=== PATIENT | female | born 1975 | race Caucasian/White ===

== ENCOUNTER → 2017-10-05 14:20 | Outpatient (CLI) | payer BC, SELFPAY ==
--- NOTE | 2017-10-05 14:30 | US_ITS ---
US breast LT complete COMPARISON: Bilateral digital mammograms 04/06/2017 HISTORY: Possible new palpable lesion 6:00 position mid breast TECHNIQUE: Targeted ultrasound left breast FINDINGS: Moderate diffuse heterogenic echogenicity is seen consistent with the heterogenic fibroglandular density seen on the mammogram 04/06/2017. There is a hypoechoic oval lesion at the 6:00 position near the nipple measuring 0.4 0.5 x 0.3 cm. This appears to have internal echoes and likely is a small complex cyst and/or cyst with internal debris. In addition there is a benign-appearing hypoechoic lesion near the nipple at the 5:00 position measuring 0.5 0.7 x 0.5 cm and this likely is a small cyst. There are couple of dilated ducts adjacent to the structure. Review of the previous mammogram shows, heterogenic fibroglandular densities in the central portion and subareolar region but no definite abnormal density at the 6:00 position. IMPRESSION: Hypoechoic lesion at the 6:00 position near the nipple likely a small fibroadenoma or complex cyst however in view of this lesion and other cystic lesion near the nipple Francisco the patient have a diagnostic left mammogram for additional evaluation.
== END ==
PROVIDERS: Family Provider Internal Medicine; PCP Internal Medicine; Visit Provider Internal Medicine
DX: N63.20 Unspecified lump in the left breast, unspecified quadrant (principal)
CPT/HCPCS: 76641

== ENCOUNTER → 2017-10-23 15:14 | Outpatient (CLI) | payer BC, SELFPAY ==
--- NOTE | 2017-10-23 15:24 | MM_ITS ---
MM Dig mamm DX unilat LT CAD COMPARISON: Digital mammograms 04/06/2017 and ultrasound left breast 10/05/2017 INDICATION: Possible palpable new lesion near the 6:00 position left breast TECHNIQUE: Standard MLO and CC views were obtained along with spot compression MLO and CC views FINDINGS: Diffuse heterogenic fibroglandular densities are noted. There is a possible small density near the 6:00 position best seen on the spot CC view. This appears to correspond in size to the hypoechoic lesion seen to this location on the ultrasound exam and could be either a small complex cyst or fibroadenoma. I do not definite see a density corresponding to the other small cystic-appearing lesion at the 5:00 position. IMPRESSION: Probable small complex cyst versus fibroadenoma. Accounting for the palpable lesion near the 6:00 position and recommend the patient have a six-month short-term interval follow-up left mammogram and possibly ultrasound as well to evaluate for interval stability BI-RADS Category: 3 Benign Finding Short Term Follow-up RECOMMENDED FOLLOW-UP: 6M - 6 MONTH FOLLOW-UP (A letter has been sent to the patient regarding results of the study.)
== END ==
PROVIDERS: Family Provider Internal Medicine; PCP Internal Medicine; Visit Provider Internal Medicine
DX: N64.89 Other specified disorders of breast
CPT/HCPCS: 77065

== ENCOUNTER → 2019-06-07 11:34 | Outpatient (CLI) | payer BC, SELFPAY ==
[2019-06-07 14:29] LABS: Alanine Aminotransferase 21 U/L (12-78); Albumin Level 3.7 gm/dL (3.4-5.0); Albumin/Globulin Ratio 1.2 (1.1-1.8); Alkaline Phosphatase 66 U/L (46-116); Anion Gap 14.9 mEq/L (5-15); Aspartate Amino Transferase 10 U/L (15-37); Bilirubin,Total 0.3 mg/dL (0.2-1.0); Blood Urea Nitrogen 12 mg/dL (7-18); Calcium 8.8 mg/dL (8.5-10.1); Carbon Dioxide 25 mmol/L (21.0-32.0); Chloride 103 mmol/L (98-107); Chol/HDL Ratio 4.5 (1-3.5); Cholesterol 187 mg/dL (140-200); Creatinine,Serum 0.62 mg/dL (0.55-1.02); Estimated Glomerular Filt Rate 104 ml/min (>60); GFR (African American) 126 ML/MIN (>60); Globulin 3.1 gm/dl (1.3-3.2); Glucose 97 mg/dL (74-106); HDL Cholesterol 42 mg/dL (29-89); LDL Cholesterol 121 mg/dL (0-130); Potassium 3.9 mmoL/L (3.5-5.1); Sodium 139 mmol/L (136-145); Thyroid Stimulating Hormone 1.91 uIU/ml (0.358-3.740); Total Protein,Serum 6.8 gm/dL (6.4-8.2); Triglycerides 122 mg/dL (30-200); VLDL Cholesterol 24 mg/dL (0-40)
== END ==
LOC: LAB 11:36 → LAB.DROPOF 11:37
PROVIDERS: Visit Provider Internal Medicine
DX: E03.9 Hypothyroidism, unspecified (principal); E06.3 Autoimmune thyroiditis; E78.5 Hyperlipidemia, unspecified; G43.109 Migraine with aura, not intractable, without status migrainosus
CPT/HCPCS: 36415; 80053; 80061; 84443

== ENCOUNTER → 2019-07-03 16:32 | Outpatient (CLI) | payer BC, SELFPAY ==
--- NOTE | 2019-07-03 16:35 | MM_ITS ---
PROCEDURE: MM DIG SCREENING MAMM BI W/CAD CLINICAL INDICATION: SCREENING The history of breast cancer in the patient's 2 maternal aunts COMPARISON: DMDXUWAR DIG MAMM-DX UNI RT W ADD VIEW from 07/26/2016 DMSB DIG MAMM-SCREEN QUEENIE W/CAD from 04/06/2017 DXLT MM Dig mamm DX unilat LT CAD from 10/23/2017 TECHNIQUE: Standard CC and MLO images were obtained. R2 CAD reviewed. FINDINGS: Prominent diffuse fibroglandular densities are seen throughout both breasts. There are 2 new nodular densities left breast one showing smooth well-defined border other showing slightly irregular borders. Both there in the outer quadrant and likely represent cysts however recommend the patient return for spot compression views and ultrasound for additional evaluation. There are no suspicious microcalcifications. IMPRESSION: New nodular lesions left breast BI-RAD Category: 0 Need Additional Imaging Evaluation FOLLOW-UP: IMM Immediate Follow-up Recommended (A letter has been sent to the patient regarding results of the study.) Dictated by: Dr. Maykel Nogueira MD 07/06/2019 15:[address] Maykel Nogueira MD in [place] 07/06/2019 15:28
== END ==
PROVIDERS: PCP Internal Medicine; Visit Provider Internal Medicine
DX: Z12.31 Encounter for screening mammogram for malignant neoplasm of breast (principal)
CPT/HCPCS: 77067

== ENCOUNTER → 2019-07-29 13:12 | Outpatient (CLI) | payer BC, SELFPAY ==
--- NOTE | 2019-07-29 13:16 | MM_ITS ---
PROCEDURE: MM DIG MAMM DX UNILAT LT CAD CLINICAL INDICATION: ABNORMAL MAMM Follow-up abnormal mammogram and left breast nodules COMPARISON: DMSB DIG MAMM-SCREEN QUEENIE W/CAD from 04/06/2017 DXLT MM Dig mamm DX unilat LT CAD from 10/23/2017 MM DIG SCREENING MAMM BI W/CAD from 07/03/2019 US BREAST LT COMPLETE from 07/29/2019 TECHNIQUE: Problem solving views of the left breast along with left breast ultrasound FINDINGS: Are fairly well-circumscribed 13 mm nodule in the upper outer left breast and 1 in the left breast at 3 o'clock. Left breast ultrasound: O'clock a well by 12 mm. At 2 o'clock there is 4 mm and a mm. 4 o'clock there is a 14 by 12 mm cyst. An additional 4 mm cyst present 4 o'clock. 5 mm cyst at 11 o'clock. Small nodes are present in the axilla. No suspicious nodules evident. IMPRESSION: New left breast nodules correspond to benign-appearing cysts BI-RAD Category: 2 Benign Finding(s) FOLLOW-UP: 1YR 1 Year Follow-up (A letter has been sent to the patient regarding results of the study.) Dictated by: Dez Thomas MD 08/02/2019 11:25 Electronically signed by Dez Thomas MD in [place] 08/02/2019 11:25
== END ==
PROVIDERS: PCP Internal Medicine; Visit Provider Internal Medicine
DX: R92.8 Other abnormal and inconclusive findings on diagnostic imaging of breast (principal)
CPT/HCPCS: 76641; 77065

== ENCOUNTER → 2021-07-22 15:11 | Outpatient (CLI) | payer OTHER, SELFPAY ==
--- NOTE | 2021-07-22 15:14 | MM_ITS ---
PROCEDURE INFORMATION: Exam: MG Bilateral Screening 3D Mammography Exam date and time: 07/22/2021 3:14 PM Age: 46 years old Clinical indication: Encounter for screening mammogram for malignant neoplasm of breast TECHNIQUE: Imaging protocol: Bilateral screening tomosynthesis and 2D mammography including computer-aided detection (CAD) when performed. COMPARISON: 1. MG MM DIG MAMM DX UNILAT LT CAD 07/29/2019 1:47 PM 2. MG MM DIG SCREENING MAMM BI W/CAD 07/03/2019 5:00 PM FINDINGS: MAMMOGRAPHY: Breast composition: The breast tissue is heterogeneously dense, which may obscure small masses. Mass: None. Architectural distortion: None. Calcifications: No suspicious calcifications. Asymmetric density: None. Skin thickening: None. Axillary adenopathy: None. IMPRESSION: No mammographic evidence of malignancy. Annual screening is recommended unless otherwise clinically indicated. ASSESSMENT: BI-RADS Category 1: Negative
== END ==
PROVIDERS: PCP Internal Medicine; Visit Provider Internal Medicine
DX: Z12.31 Encounter for screening mammogram for malignant neoplasm of breast (principal)
CPT/HCPCS: 77063; 77067

== ENCOUNTER 2022-06-06 07:28 | Emergency (ER) | payer OTHER, SELFPAY ==
[2022-06-06] VITALS (8 sets, daily range): BP systolic 124–158; BP diastolic 73–96; PULSE 57–70; RESP 18–20; TEMP 36.7; O2SAT 96–99; BMI 30.2
--- NOTE | 2022-06-06 | ECG_ITS ---
APPROVED REPORT Exam: Resting ECG HR:68 bpm ECG Measurements Heart Rate 68 AXES MS 174 P 9 QRSd 70 QRS 5 QT 384 T 18 QTc 401 Conclusion SINUS RHYTHM WITH SINUS ARRHYTHMIA LOW QRS VOLTAGE IN PRECORDIAL LEADS [QRS DEFLECTION < 1.0 mV IN CHEST LEADS] BORDERLINE ECG UNCONFIRMED REPORT Electronically signed by : Ronald Melo MD 06/06/2022 20:52:29
--- NOTE | 2022-06-06 07:44 | XR_ITS ---
FINAL REPORT CLINICAL HISTORY: CP FINDINGS: Two views of the chest were obtained. The heart size and pulmonary vascularity are within normal limits. The mediastinum is normal. No acute pulmonary abnormality is identified. There is no pneumothorax. The bony thorax is intact. IMPRESSION: No active cardiopulmonary disease. Reviewed, Interpreted and Dictated by Zackary Mohamud III, MD Transcribed by Emi Russo Authenticated and [facility]
[2022-06-06 07:56] LABS: Chloride 99 mmol/L (98-107); Sodium 136 mmol/L (136-145)
[2022-06-06 07:57] LABS: Basophils # 0.1 K/mm3 (0-0.2); Eosinophils # 0.1 K/mm3 (0.0-0.4); Eosinophils % 1.5 % (0.1-12.0); Hematocrit 43.5 % (37.0-47.0); Hemoglobin 14.2 g/dL (12.2-16.2); Lymphocytes # 1.3 K/mm3 (0.7-4.5); Lymphocytes % 14.8 % (10-50); Mean Corpuscular HGB Conc 32.6 g/dL (31.8-35.4); Mean Platelet Volume 8.4 fl (7.4-10.4); Monocytes # 0.5 K/mm3 (0.1-1.0); Monocytes % 5.8 % (1.7-9.3); Neutrophils # 6.6 K/mm3 (1.8-7.8); Neutrophils % 76.9 % (37.0-80.0); Platelet Count 309 K/mm3 (142-424); Potassium 4.4 mmoL/L (3.5-5.1); Red Blood Count 4.57 M/mm3 (4.20-5.40); Red Cell Distribution Width 13.6 % (11.5-17.5); White Blood Count 8.6 K/mm3 (4.8-10.8)
[2022-06-06 07:59] LABS: Anion Gap 12.4 mEq/L (5-15); Blood Urea Nitrogen 12 mg/dl (7-17); Carbon Dioxide 29 mmol/L (22.0-30.0); Creatinine Clearance Estimated 163 mL/min (50-200); Estimated Glomerular Filt Rate 132 ml/min (>60); GFR (African American) 159 ML/MIN (>60)
[2022-06-06 08:00] LABS: Calcium 8.8 mg/dl (8.4-10.2); Glucose 100 mg/dl (74-100)
--- NOTE | 2022-06-06 08:01 | PC.NURSE ---
PT TO XR AT THIS TIME
--- NOTE | 2022-06-06 08:05 | PC.NURSE ---
PT RETURNED FROM XR
[2022-06-06 08:12] LABS: Troponin I < 0.01 ng/ml (0.00-0.034)
--- NOTE | 2022-06-06 08:22 | PC.NURSE ---
DR. TUTTLE AT BEDSIDE FOR EVALUATION
--- NOTE | 2022-06-06 08:29 | HMH.EDGENADL ---
Discharge Plan Disposition Patient Disposition: Home, Self-Care Condition: Good Chief Complaint: Chest Pain Referrals Follow up/Referrals: Good Rai MD [Primary Care Provider] - See instructions Clinical Impressions Clinical Impression: Chest pain Instructions Patient Instructions: DI for Chest Pain Discharge ED Provider: Cody Melton General Adult HPI General Chief complaint: Chest Pain Stated complaint: chest pain Time Seen by Provider: 06/06/22 08:10 Mode of Arrival: Wheelchair Limitations: No Limitations Description of Symptoms (Recalled from ER Triage Doc. by RN): PT WITH CHEST PAIN/PRESSURE THAT BEGAN LAST NIGHT, LEFT FACE TINGLING. SMILE SYMMETRICAL History of Present Illness HPI narrative: Patient is a 46-year-old female with no pertinent past medical history who comes in with a complaint of chest pain. She states that she was lying in bed last time when she got acute onset of substernal chest pain. She describes it as a pressure sensation. She says that she got concerned today because she started to get some numbness into her left shoulder and her left jaw. She denies any nausea or diaphoresis. Denies any shortness of breath. She says this never happened in the past. She does have some family history of coronary artery disease but none personally. The substernal pain does not radiate. She does state that she is little bit anxious about and is wondering if that is contributing to her symptoms. Related Data Allergies Allergy/AdvReac Type Severity Reaction Status Date / Time clarithromycin Allergy Intermediate I-RASH Verified 06/06/22 08:29 [CLARITHROMYCIN] Sulfa (Sulfonamide Allergy Intermediate I-HIVES Verified 06/06/22 08:29 Antibiotics) [SULFA (SULFONAMIDE ANTIBIOTICS)] [facility] Surgical History (Updated 06/06/22 @ 07:49 by Corinna Unger RN) H/O section H/O: hysterectomy History of cholecystectomy Family History (Updated 06/06/22 @ 07:49 by Corinna Unger RN) Other No significant family history Social History (Updated 06/06/22 @ 07:49 by Corinna Unger RN) Smoking Status: Never smoker alcohol intake: never current occupational status: employed Travel in the last 8 weeks: None ROS Obtained: Yes All systems reviewed & no additional complaints except as documented A 14 point review of system was obtained and otherwise negative except per HPI Physical Exam General General appearance: alert and in no apparent distress Head Head exam: atraumatic, normocephalic and normal inspection Eye Eye exam: Present normal appearance, PERRL and EOMI ENT ENT exam: Present normal exam, normal oropharynx, mucous membranes moist, TM's normal bilaterally and normal external ear exam Neck Neck exam: Present normal inspection, full ROM and trachea midline; Absent meningismus or lymphadenopathy Chest Chest inspection: Present normal inspection and symmetric chest wall rise; Absent tenderness Respiratory Respiratory exam: Present normal lung sounds bilaterally; Absent respiratory distress Cardiovascular Cardiovascular exam: Present regular rate and normal rhythm; Absent JVD Abdominal Exam Abdominal exam: Present soft and normal bowel sounds; Absent distention, tenderness or guarding Extremities Exam Extremities exam: Present normal inspection, full ROM and normal capillary refill; Absent calf tenderness Back Exam Back exam: Present normal inspection; Absent tenderness Neurological Exam Neurological exam: Present alert and oriented X3 Psychiatric Psychiatric exam: Present normal affect and normal mood Skin Skin exam: Present warm, dry, intact and normal color Lymphatic Lymphatic Findings: no adenopathy Medical Decision Making Medical Records Medical records reviewed: Yes I reviewed the patient's medical records. Fadi Inquiry Pt receiving controlled substance: No Vital Signs: 06/06/22 07:28 06/06/22 07:46 06/06/22 08:01 Gaetano
--- NOTE | 2022-06-06 09:32 | PC.NURSE ---
ROUNDED ON PT AT THIS TIME. NO NEEDS VOICED. CALL LIGHT WITHIN REACH
--- NOTE | 2022-06-06 09:41 | PC.NURSE ---
PT REPORTS LEFT THROAT PAIN AND DROOLING FROM LEFT SIDE OF MOUTH, MD MADE AWARE
--- NOTE | 2022-06-06 09:46 | PC.NURSE ---
DR. TUTTLE AT BEDSIDE
--- NOTE | 2022-06-06 09:49 | CT_ITS ---
FINAL REPORT CLINICAL HISTORY: concern for cva COMPARISON: 07/26/2017 FINDINGS: Axial images of the head were obtained without contrast. Coronal reformatted images were also obtained.This study was performed with techniques to keep radiation doses as low as reasonably achievable (ALARA). Individualized dose reduction techniques using automated exposure control or adjustment of mA and/or kV according to the patient''s size were employed. There is no evidence of intracranial hemorrhage or mass. The ventricular size is within normal limits. There is no evidence of shift of the midline structures. No abnormal extra axial fluid collection is identified. No skull abnormality is seen on the bone window images. IMPRESSION: No acute intracranial abnormality. Reviewed, Interpreted and Dictated by Zackary Mohamud III, MD Transcribed by Mariela Ragsdale Authenticated and . [facility]
--- NOTE | 2022-06-06 10:10 | PC.NURSE ---
PT TO CT AT THIS TIME
--- NOTE | 2022-06-06 10:23 | PC.NURSE ---
PT RETURNED FROM CT
[2022-06-06 11:35] LABS: Troponin I < 0.01 ng/ml (0.00-0.034)
--- NOTE | 2022-06-06 12:47 | PC.NURSE ---
ROUNDED ON PT AT THIS TIME, UPDATED ON POC. NO NEEDS AT THIS TIME. FAMILY AT BEDSIDE
--- NOTE | 2022-06-06 12:52 | PC.NURSE ---
DR. TUTTLE AT BEDSIDE TO DISCUSS DISCHARGE WITH PT AND FAMILY
== END 2022-06-06 13:00 | disposition home or self-care (01) ==
PROVIDERS: Emergency Provider Student in an Organized Health Care Education/Training Program; PCP Internal Medicine
DX: R07.2 Precordial pain (principal); R20.2 Paresthesia of skin; Z88.2 Allergy status to sulfonamides; Z88.8 Allergy status to other drugs, medicaments and biological substances; Z82.49 Family history of ischemic heart disease and other diseases of the circulatory system
CPT/HCPCS: 70450; 71046; 80048; 84484; 85025; 93005; 99285

== ENCOUNTER → 2022-06-12 12:47 | Outpatient (CLI) | payer OTHER, SELFPAY ==
--- NOTE | 2022-06-12 | CA_ITS ---
FINAL REPORT TECHNIQUE: Color Doppler, duplex Doppler and shetty scale sonography of the bilateral neck vasculature was performed. Velocities were measured in the carotid arteries. Stenosis evaluation based on velocity criteria. CLINICAL HISTORY: .episode of CP with lt arm numbness and elevated BP. Family hx- QUYEN FINDINGS: The peak systolic velocity of the right common carotid artery is 81 cm/sec and internal carotid artery 120 cm/sec. The diastolic velocity in the internal carotid artery is 42 cm/sec. The ICA/CCA ratio is 1.6. Visually, no plaque is seen. These findings are consistent with less than 50% stenosis. The external carotid artery is patent. The right vertebral artery is patent with antegrade flow. The peak systolic velocity of the left common carotid artery is 92 cm/sec and internal carotid artery 95 cm/sec. The diastolic velocity in the internal carotid artery is 34 cm/sec. The ICA/CCA ratio is 1.1. Visually, no plaque is seen. These findings are consistent with less than 50% stenosis. The external carotid artery is patent. The left vertebral artery is patent with antegrade flow. IMPRESSION: No evidence of significant carotid stenosis. Bilateral patent vertebral arteries. If indicated, CTA or MRA could further evaluate. Reviewed, Interpreted and Dictated by Zackary Mohamud III, MD Transcribed by Laure Greco Authenticated and [facility]
== END ==
PROVIDERS: PCP Internal Medicine; Visit Provider Internal Medicine
DX: R07.9 Chest pain, unspecified (principal); I10 Essential (primary) hypertension
CPT/HCPCS: 93880

== ENCOUNTER → 2022-06-23 11:30 | Outpatient (CLI) | payer OTHER, SELFPAY ==
[2022-06-23 12:02] LABS: Anion Gap 11.1 mEq/L (5-15); Blood Urea Nitrogen 12 mg/dl (7-17); Calcium 9.2 mg/dl (8.4-10.2); Carbon Dioxide 30 mmol/L (22.0-30.0); Chloride 97 mmol/L (98-107); Estimated Glomerular Filt Rate 132 ml/min (>60); GFR (African American) 159 ML/MIN (>60); Glucose 92 mg/dl (74-100); Potassium 4.1 mmoL/L (3.5-5.1); Sodium 134 mmol/L (136-145)
[2022-06-23 12:11] LABS: NT Pro Brain Natriuretic Pep. 16.4 pg/mL (0-125)
== END ==
PROVIDERS: PCP Internal Medicine; Visit Provider Internal Medicine Cardiovascular Disease
DX: R06.00 Dyspnea, unspecified (principal); R07.9 Chest pain, unspecified; R06.83 Snoring; R40.0 Somnolence; R60.0 Localized edema; R63.5 Abnormal weight gain
CPT/HCPCS: 36415; 80048; 83880

== ENCOUNTER → 2022-06-26 14:51 | Outpatient (CLI) | payer OTHER, SELFPAY | PROVIDERS: PCP Internal Medicine; Visit Provider Internal Medicine Cardiovascular Disease | DX: R06.00 Dyspnea, unspecified (principal); R07.9 Chest pain, unspecified; G47.33 Obstructive sleep apnea (adult) (pediatric); R06.83 Snoring; R40.0 Somnolence; R60.0 Localized edema | CPT/HCPCS: 95806 ==

== ENCOUNTER → 2022-07-03 06:49 | Outpatient (CLI) | payer OTHER, SELFPAY ==
--- NOTE | 2022-07-03 06:52 | CT_ITS ---
FINAL REPORT CLINICAL HISTORY: . chest pain, screening FINDINGS: CT CORONARY CALCIUM SCORE W/O TECHNIQUE: Thin-section axial images were obtained through the heart and coronary arteries per CT coronary calcium score protocol. This study was performed with techniques to keep radiation doses as low as reasonably achievable (ALARA). Individualized dose reduction techniques using automated exposure control or adjustment of mA and/or kV according to the patient's size were employed. FINDINGS: On the axial images, there is calcification within the left descending and circumflex arteries. This gives a coronary artery calcium score of 218 based on the Agatston scale. This coronary artery calcium score places the patient within the 98th percentile based on age and gender. The heart size is normal. There is no pleural or pericardial effusion. Limited evaluation of the lungs reveal no suspicious nodule. IMPRESSION: Coronary artery and calcium score of 218, 98 percentile.. Reviewed, Interpreted and Dictated by Garrett Wilkinson MD Transcribed by Nakita Lara Authenticated and [facility]
== END ==
PROVIDERS: PCP Internal Medicine; Visit Provider Internal Medicine Cardiovascular Disease
DX: R06.00 Dyspnea, unspecified (principal); R07.9 Chest pain, unspecified; R60.0 Localized edema
CPT/HCPCS: 75571

== ENCOUNTER → 2022-07-03 06:54 | Outpatient (CLI) | payer OTHER, SELFPAY ==
--- NOTE | 2022-07-03 06:54 | CA_ITS ---
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 RCS, RVS Ht: 5 ft 0 in Wt: 183lbs BSA: 1.80 BP: 142/79 mmHg Indications: Chest Pressure, SOA, Edema Echo Enhancing Agent Comments: Limited acoustic windows with lung impedence 2D Dimensions IVSd 0.95 cm LVEF (Visual) 69.40 % PWd 0.72 cm LA Volume 30.20 mL LVDd 3.39 cm LA Volume Index 16.40 mL/m2 (M/F) 16-34 LVDs 2.10 cm Aortic Root 2.89 cm Left Atrium 2.43 cm LVOT 1.86 cm (M/F) 1.5-2.5 M-Mode Dimensions RVDd 3.49 cm (0.9-2.6) LA Diam 3.01 cm (1.9-4.0) LVDd 3.59 cm (3.5-5.7) Ao Diam 2.77 cm (2.0-3.7) LVDs 2.42 cm (3.5-5.7) IVSd 0.81 cm (0.6-1.1) PWd 0.84 cm (0.6-1.1) EF (Teich) 61.90% EPSs 0.71 cm FS 32.60% EDV (Teich) 54.10 mL TAPSE 1.65 (<1.7) ESV (Teich) 20.60 mL LV Diastology E Decel Time 190.00 (160-240 msec) E/A Ratio 1.27 MED E' 5.90 (< 7 cm/sec) MED A' 8.30 cm/s E'/MED E' Ratio 11.19 (>14) LAT E' 8.50 (<10 cm/sec) LAT A' 9.10 cm/s E/LAT E' Ratio 7.76 (>14) Aortic Valve LVOT Max 74.00 (70-110 cm/s) LVOT VTI 17.68 cm AoV Peak Bayron. 90.00 (50-130 cm/s) AO Peak GR. 3.20 mmHg AO Mean GR. 1.60 (<5 mmHg) AO VTI 17.95 (18-25 cm) ESTELLA (VTI) 2.68 (2.5-4.5 cm2) Mitral Valve MV A Velocity 52.00 (40-130 cm/s) E/A Ratio 1.27 MV Decel. Time 190.00 (160-240 ms) MV PHT 57.00 ms Pulmonary Valve PV Peak Velocity 88.00 (50-150 cm/s) SC End VMAX 122.00 cm/s Tricuspid Valve TR P. Velocity 224.00 cm/s RAP Estimate 10.00 mmHg RVSP 30.10 mmHg Left Ventricle Left atrium is normal size, left ventricle is normal size, estimated ejection fraction 55% with no regional wall motion abnormality. Diastolic parameters are inconclusive. Right Ventricle Right atrium and right ventricle are mildly enlarged with normal contractility. Aortic Valve Aortic valve is grossly normal, there is no aortic stenosis or aortic insufficiency. Mitral Valve Mitral valve is grossly normal, there is mild mitral regurgitation Tricuspid Valve Tricuspid valve grossly normal, there is mild tricuspid regurgitation, calculated right ventricular systolic pressure 30 mmHg. Pulmonic Valve Pulmonic valve is poorly visualized. Great Vessels Aortic root is normal size. Inferior vena cava is normal 7 normal inspiratory collapse. Pericardium No significant pericardial effusion noted. Conclusion 1. Normal left ventricular size preserved left ventricular systolic function, estimated ejection fraction 55% with no regional wall motion abnormality, diastolic parameters are inconclusive in the study. 2. Mildly enlarged right ventricle with normal contractility. 3. Mild mitral and tricuspid regurgitation, calculated right ventricular systolic pressure 30 mmHg. 4. No significant pericardial effusion noted. 5. Inferior vena cava is normal size with normal inspiratory collapse. Electronically signed by : Eber Santos MD 07/18/2022 05:44:32
--- NOTE | 2022-07-03 08:47 | HMH.ITSHM ---
Current Home Medications as stated by this patient Yessi Fraser or assisted sales representative. []PROPRANOLOL LEVOTHYROXINE NURTEC SPIRONOLACTONE FAMOTIDINE OMEPRAZOLE ASA
--- NOTE | 2022-07-03 08:59 | ECG_ITS ---
APPROVED REPORT Exam: Resting ECG HR:85 bpm ECG Measurements Heart Rate 85 AXES IN 187 P 25 QRSd 71 QRS 6 QT 374 T 7 QTc 416 Conclusion SINUS RHYTHM LOW QRS VOLTAGE IN PRECORDIAL LEADS [QRS DEFLECTION < 1.0 mV IN CHEST LEADS] ABNORMAL ECG UNCONFIRMED REPORT Electronically signed by : Ronald Melo MD 07/03/2022 21:10:45
== END ==
PROVIDERS: PCP Internal Medicine; Visit Provider Internal Medicine Cardiovascular Disease
DX: R06.00 Dyspnea, unspecified (principal); R07.9 Chest pain, unspecified; R06.83 Snoring
CPT/HCPCS: 78452; 93005; 93017; 93306; A9502

== ENCOUNTER → 2023-06-15 06:10 | Outpatient (CLI) | payer OTHER, SELFPAY ==
[2023-06-15 06:35] LABS: Basophils % 0.6 % (0.1-2.0); Eosinophils # 0.1 K/mm3 (0.0-0.4); Hematocrit 39.9 % (37.0-47.0); Hemoglobin 13.6 g/dL (12.2-16.2); Lymphocytes # 1.2 K/mm3 (0.7-4.5); Lymphocytes % 18.5 % (10-50); Mean Corpuscular HGB Conc 34.1 g/dL (31.8-35.4); Mean Corpuscular Hemoglobin 32.3 pg (27.0-31.2); Mean Corpuscular Volume 94.7 fl (81-99); Mean Platelet Volume 8.3 fl (7.4-10.4); Monocytes # 0.3 K/mm3 (0.1-1.0); Monocytes % 5.2 % (1.7-9.3); Neutrophils # 4.8 K/mm3 (1.8-7.8); Neutrophils % 73.7 % (37.0-80.0); Platelet Count 250 K/mm3 (142-424); Red Blood Count 4.21 M/mm3 (4.20-5.40); Red Cell Distribution Width 13.7 % (11.5-17.5); White Blood Count 6.5 K/mm3 (4.8-10.8)
[2023-06-15 07:18] LABS: Chloride 103 mmol/L (98-107)
[2023-06-15 07:19] LABS: Potassium 4.4 mmoL/L (3.5-5.1); Sodium 137 mmol/L (136-145)
[2023-06-15 07:21] LABS: Blood Urea Nitrogen 15 mg/dl (7-17); Estimated Glomerular Filt Rate 106 ml/min (>60); GFR (African American) 129 ML/MIN (>60)
[2023-06-15 07:22] LABS: Alanine Aminotransferase 34 U/L (12-78); Albumin Level 4.2 g/dl (3.5-5.0); Albumin/Globulin Ratio 1.5 (1.1-1.8); Alkaline Phosphatase 64 U/L (38-126); Anion Gap 10.4 mEq/L (5-15); Aspartate Amino Transferase 37 U/L (14-36); Bilirubin,Total 0.5 mg/dl (0.2-1.3); Calcium 8.8 mg/dl (8.4-10.2); Carbon Dioxide 28 mmol/L (22.0-30.0); Chol/HDL Ratio 3.4 (1-3.5); Cholesterol 128 mg/dl (140-200); Globulin 2.8 g/dL (1.3-3.2); Glucose 124 mg/dl (74-100); HDL Cholesterol 38 mg/dl (40-60); Triglycerides 205 mg/dl (30-150); VLDL Cholesterol 41 mg/dL (0-40)
[2023-06-15 07:33] LABS: Direct LDL Cholesterol 70.94 mg/dL (100-129)
[2023-06-15 07:49] LABS: Hemoglobin A1C 5.8 % (4.0-6.0)
[2023-06-15 07:52] LABS: Thyroid Stimulating Hormone 2.36 uIU/mL (0.465-4.68)
== END ==
PROVIDERS: PCP Internal Medicine; Visit Provider Internal Medicine
DX: E03.9 Hypothyroidism, unspecified (principal); E78.5 Hyperlipidemia, unspecified; R60.9 Edema, unspecified; G47.33 Obstructive sleep apnea (adult) (pediatric)
CPT/HCPCS: 80053; 80061; 83036; 84443; 85025

== ENCOUNTER 2023-11-02 07:34 | Outpatient (CLI) | payer OTHER, SELFPAY ==
[2023-11-02 07:32] LABS: Alanine Aminotransferase 41 U/L (12-78); Albumin Level 4.3 g/dl (3.5-5.0); Alkaline Phosphatase 82 U/L (38-126); Anion Gap 10.1 mEq/L (5-15); Aspartate Amino Transferase 33 U/L (14-36); Bilirubin,Direct 0.1 mg/dl (0.0-0.4); Bilirubin,Indirect 0.5 mg/dL (0.0-0.9); Bilirubin,Total 0.6 mg/dl (0.2-1.3); Bilirubin,Unconjugated 0.4 mg/dL (0.0-1.1); Blood Urea Nitrogen 9 mg/dl (7-17); Calcium 8.7 mg/dl (8.4-10.2); Carbon Dioxide 28 mmol/L (22.0-30.0); Chloride 105 mmol/L (98-107); Chol/HDL Ratio 3.7 (1-3.5); Cholesterol 130 mg/dl (140-200); Estimated Glomerular Filt Rate 106 ml/min (>60); GFR (African American) 128 ML/MIN (>60); Glucose 120 mg/dl (74-100); HDL Cholesterol 35 mg/dl (40-60); Magnesium 1.9 mg/dl (1.6-2.3); Potassium 4.1 mmoL/L (3.5-5.1); Sodium 139 mmol/L (136-145); Triglycerides 137 mg/dl (30-150); VLDL Cholesterol 27 mg/dL (0-40)
[2023-11-02 07:42] LABS: Basophils # 0.1 K/mm3 (0-0.2); Basophils % 1.1 % (0.1-2.0); Direct LDL Cholesterol 66.68 mg/dL (100-129); Eosinophils # 0.1 K/mm3 (0.0-0.4); Eosinophils % 1.2 % (0.1-12.0); Hematocrit 43.9 % (37.0-47.0); Lymphocytes # 1.1 K/mm3 (0.7-4.5); Lymphocytes % 16.2 % (10-50); Mean Corpuscular HGB Conc 31.8 g/dL (31.8-35.4); Mean Corpuscular Hemoglobin 31.2 pg (27.0-31.2); Mean Corpuscular Volume 98.1 fl (81-99); Mean Platelet Volume 8.3 fl (7.4-10.4); Monocytes # 0.4 K/mm3 (0.1-1.0); Monocytes % 5.6 % (1.7-9.3); Neutrophils # 5.1 K/mm3 (1.8-7.8); Neutrophils % 75.8 % (37.0-80.0); Platelet Count 285 K/mm3 (142-424); Red Blood Count 4.47 M/mm3 (4.20-5.40); Red Cell Distribution Width 14.2 % (11.5-17.5); White Blood Count 6.7 K/mm3 (4.8-10.8)
[2023-11-02 08:01] LABS: Thyroid Stimulating Hormone 1.84 uIU/mL (0.465-4.68)
[2023-11-02 08:28] LABS: Free T4 (Free Thyroxine) 1.05 ng/dl (0.78-2.19)
== END 2023-11-02 23:59 ==
LOC: LAB 07:34
PROVIDERS: PCP Internal Medicine; Visit Provider Internal Medicine
DX: I25.10 Atherosclerotic heart disease of native coronary artery without angina pectoris (principal); I25.84 Coronary atherosclerosis due to calcified coronary lesion; R93.1 Abnormal findings on diagnostic imaging of heart and coronary circulation; R06.09 Other forms of dyspnea; G47.33 Obstructive sleep apnea (adult) (pediatric); R63.5 Abnormal weight gain; R60.0 Localized edema; E78.5 Hyperlipidemia, unspecified; Z13.1 Encounter for screening for diabetes mellitus; Z68.38 Body mass index [BMI] 38.0-38.9, adult
CPT/HCPCS: 36415; 80048; 80061; 80076; 83036; 83735; 84439; 84443; 85025

== ENCOUNTER 2023-11-13 12:50 | Outpatient (CLI) | payer OTHER, SELFPAY ==
--- NOTE | 2023-11-13 12:51 | CA_ITS ---
APPROVED REPORT EXAM: Comprehensive 2D, Doppler, and color-flow Echocardiogram Sales Operations Lead: Leslie Barton CRT Ht: 5 ft 0 in Wt: 195lbs BSA: 1.85 BP: 110/54 mmHg Indications: Chest Pain, Shortness of Breath, Peripheral Edema TDE limited windowa 2D Dimensions LA Volume 37.90 mL LA Volume Index 20.10 mL/m2 (M/F) 16-34 M-Mode Dimensions RVDd 2.86 cm (0.9-2.6) LA Diam 3.17 cm (1.9-4.0) LVDd 4.00 cm (3.5-5.7) LVDs 2.46 cm (3.5-5.7) IVSd 1.14 cm (0.6-1.1) PWd 0.86 cm (0.6-1.1) EF (Teich) 69.40% FS 38.50% EDV (Teich) 70.00 mL TAPSE 1.93 (<1.7) ESV (Teich) 21.40 mL LV Diastology E Decel Time 197 (160-240 msec) E/A Ratio 1.14 MED A' 11.00 cm/s LAT A' 11.60 cm/s Aortic Valve AO Peak GR. 5.30 mmHg Mitral Valve MV A Velocity 76.0 (40-130 cm/s) E/A Ratio 1.14 Tricuspid Valve TR P. Velocity 166.00 cm/s Left Ventricle The left ventricle is normal size. The left ventricular systolic function is normal. The left ventricular ejection fraction is within the normal range. There is increased LV wall thickness. There is normal LV segmental wall motion. The left ventricular diastolic function is normal. LVEF is 55%. Right Ventricle Right ventricle is mild to moderately dilated. Right ventricle is mildly hypokinetic. Atria The left atrium size is normal. The right atrium size is normal. The interatrial septum is not well-visualized. Aortic Valve The aortic valve opens well. There is no aortic valvular stenosis. No aortic regurgitation is present. Mitral Valve The mitral valve is normal in structure. No evidence of mitral valve stenosis. There is no mitral valve regurgitation noted. Tricuspid Valve The tricuspid valve leaflets are not well-visualized. Trace tricuspid regurgitation. There is insufficient TR jet to estimate RVSP. Pulmonic Valve The pulmonic valve leaflets are not well-visualized. Great Vessels The aortic root is not well-visualized. The IVC is not well-visualized. Pericardium There is no pericardial effusion. Other Information Study Quality: Technically Difficult Conclusion Technically difficult study due to poor acoustic windows. Grossly, normal LV systolic function. Mild to moderate RV dilation with mild reduction in RV function. No significant valvular stenosis or regurgitation in the visualized valves. Electronically signed by : Radhika Bailey MD 11/15/2023 12:05:14
== END 2023-11-13 23:59 ==
LOC: RT 12:51
PROVIDERS: PCP Internal Medicine; Visit Provider Internal Medicine
DX: R06.09 Other forms of dyspnea (principal); R60.0 Localized edema; I25.10 Atherosclerotic heart disease of native coronary artery without angina pectoris; E78.5 Hyperlipidemia, unspecified; R93.1 Abnormal findings on diagnostic imaging of heart and coronary circulation; I25.84 Coronary atherosclerosis due to calcified coronary lesion; G47.33 Obstructive sleep apnea (adult) (pediatric); R63.5 Abnormal weight gain; Z68.38 Body mass index [BMI] 38.0-38.9, adult
CPT/HCPCS: 93306

== ENCOUNTER 2024-10-13 09:02 | Outpatient (CLI) | payer BC, SELFPAY ==
[2024-10-13 09:48] LABS: Eosinophils # 0.1 K/mm3 (0.0-0.4); Mean Corpuscular Hemoglobin 30.6 pg (27.0-31.2); Monocytes # 0.4 K/mm3 (0.1-1.0); Neutrophils # 3.8 K/mm3 (1.8-7.8); Platelet Count 273 K/mm3 (142-424); White Blood Count 5.3 K/mm3 (4.8-10.8)
[2024-10-13 09:52] LABS: Basophils % 0.6 % (0.1-2.0); Eosinophils % 1.7 % (0.1-12.0); Hematocrit 42.4 % (37.0-47.0); Lymphocytes % 19.5 % (10-50); Mean Corpuscular Volume 92.6 fl (81-99); Monocytes % 7.1 % (1.7-9.3); Neutrophils % 70.5 % (37.0-80.0); Red Blood Count 4.58 M/mm3 (4.20-5.40); Red Cell Distribution Width 13.2 % (11.5-17.5)
[2024-10-13 10:10] LABS: Albumin Level 4.5 g/dl (3.5-5.0); Chloride 99 mmol/L (98-107)
[2024-10-13 10:11] LABS: Potassium 4.1 mmoL/L (3.5-5.1); Sodium 136 mmol/L (136-145)
[2024-10-13 10:13] LABS: Alanine Aminotransferase 45 U/L (12-78); Anion Gap 12.1 mEq/L (5-15); Aspartate Amino Transferase 33 U/L (14-36); Bilirubin,Unconjugated 0.6 mg/dL (0.0-1.1); Blood Urea Nitrogen 8 mg/dl (7-17); Carbon Dioxide 29 mmol/L (22.0-30.0); Estimated Glomerular Filt Rate 88 ml/min (>60); GFR (African American) 107 ML/MIN (>60)
[2024-10-13 10:14] LABS: Alkaline Phosphatase 74 U/L (38-126); Bilirubin,Direct 0.2 mg/dl (0.0-0.4); Bilirubin,Indirect 0.6 mg/dL (0.0-0.9); Bilirubin,Total 0.8 mg/dl (0.2-1.3); Calcium 9.1 mg/dl (8.4-10.2); Chol/HDL Ratio 2.3 (1-3.5); Cholesterol 105 mg/dl (140-200); Glucose 92 mg/dl (74-100); HDL Cholesterol 45 mg/dl (40-60); Magnesium 1.7 mg/dl (1.6-2.3); Triglycerides 111 mg/dl (30-150); VLDL Cholesterol 22 mg/dL (0-40)
[2024-10-13 10:25] LABS: Direct LDL Cholesterol 43.32 mg/dL (100-129)
[2024-10-13 10:43] LABS: Thyroid Stimulating Hormone 1.16 uIU/mL (0.465-4.68)
[2024-10-13 10:48] LABS: Free T4 (Free Thyroxine) 1.03 ng/dl (0.78-2.19)
== END 2024-10-13 23:59 | disposition home or self-care (01) ==
LOC: LAB 09:04
PROVIDERS: PCP Internal Medicine; Visit Provider Physician Assistant
DX: Z13.1 Encounter for screening for diabetes mellitus (principal); I25.118 Atherosclerotic heart disease of native coronary artery with other forms of angina pectoris; E78.49 Other hyperlipidemia; R93.1 Abnormal findings on diagnostic imaging of heart and coronary circulation; I25.10 Atherosclerotic heart disease of native coronary artery without angina pectoris; G47.33 Obstructive sleep apnea (adult) (pediatric); E66.9 Obesity, unspecified; Z68.30 Body mass index [BMI] 30.0-30.9, adult
CPT/HCPCS: 36415; 80048; 80061; 80076; 83735; 84439; 84443; 85025

== ENCOUNTER 2025-01-19 08:11 | Outpatient (CLI) | payer BC, SELFPAY ==
--- NOTE | 2025-01-19 08:30 | MM_ITS ---
PROCEDURE INFORMATION: Exam: MG Bilateral Screening 3D Mammography Exam date and time: 01/19/2025 8:36 AM Age: 49 years old Clinical indication: Screening examination TECHNIQUE: Imaging protocol: Bilateral Screening tomosynthesis and 2D mammography including computer-aided detection (CAD) when performed. COMPARISON: 1. MG MM DIG SCREENING MAMM BI W/CAD 07/22/2021 3:22 PM 2. MG MM DIG MAMM DX UNILAT LT CAD 07/29/2019 1:47 PM FINDINGS: MAMMOGRAPHY: Breast composition: There are scattered areas of fibroglandular density. Mass: None. Architectural distortion: None. Calcifications: No suspicious calcifications. Asymmetric density: None. Skin thickening: None. Axillary adenopathy: None. IMPRESSION: No mammographic evidence of malignancy. Annual screening is recommended unless otherwise clinically indicated. ASSESSMENT: BI-RADS 1, Negative.
== END 2025-01-19 23:59 | disposition home or self-care (01) ==
LOC: RAD 08:12
PROVIDERS: PCP Internal Medicine; Visit Provider Internal Medicine
DX: Z12.31 Encounter for screening mammogram for malignant neoplasm of breast (principal); R92.323 Mammographic fibroglandular density, bilateral breasts
CPT/HCPCS: 77063; 77067

== ENCOUNTER 2025-04-15 09:25 | Outpatient (CLI) | payer BC, SELFPAY ==
--- OUTSIDE RECORDS SUMMARY | 2025-04-15 09:32 | XMS_ITS | Clinical Summary ---
Author Organization [facility] Address [address] [place] [address] Care Team Providers Care Barratte Operator Name Role Phone Unavailable Primary Care Provider Unavailabl e Social History Tobacco Use Types Packs/Day Years Used Date Smoking Tobacco: Never Assessed Comments Unknown Sex and Gender Information Value Date Recorded Sex Assigned at Not on file Legal Sex Female 7:59 PM EDT Gender Identity Not on file Sexual Orientation Not on file Plan of Treatment Health Maintenance Due Date Last Done Comments [facility]-Depression Screening 1973 [facility]-/Child/Adol SDOH Screenings 1973 [facility]- SDOH Screenings 1991 [facility]-Adult SDOH Screenings 1991 [facility]-DTaP,Tdap,and Td Vaccine s (1 - Tdap) 1992 [facility]-Hepatitis B Vaccines (1 of 3 - 19+ 3-dose series) 1992 [facility]-Pap Smear 11/18/2001 11/18/1998, 09/16/1996, 03/24/1996 [facility]-Cervical Cancer Screening 11/19/2003 [facility]-HPV/Cotest 11/19/2003 11/18/1998, 09/16/1996, 03/24/1996 CT Colonography 2018 Colonoscopy 2018 FIT-DNA 2018 FIT 2018 FOBT 2018 Sigmoidoscopy 2018 [facility]-Colorectal Cancer Screening 2018 [facility]-Pneumococcal Vaccine: 50 + Years (1 of 1 - PCV) 2023 [facility]-Zoster Vaccines (1 of 2) 2023 SOW-JNYSI-21 Vaccine (3 - 2023- season) 2024 09/15/2020, 08/17/2020 [facility]-Influenza Vaccine (#1) 2025 HPV Vaccines Aged Out No longer eligi ble based on patient's age to complete this topic [facility]-HIB Vaccines Aged Out No longer e ligible based on patient's age to complete this topic [facility]-Hepatitis A Vaccines Aged Out No longer eligible based on patient's age to complete this topic [facility]-IPV Vaccines Aged Out No longer e ligible based on patient's age to complete this topic [facility]-Rotavirus Vaccines Aged Out No lo nger eligible based on patient's age to complete this topic Procedures Procedure Name Priority Date/Time Associated Diagnosis Comments CYTO DATA CONVERSION Routine 11/18/1998 12:00 AM EST from Last 3 Months or Most Recently Relevant to Health Maintenance Results * Cytology (11/18/1998 12:00 AM EST) 11/18/1998 11/19/1998 Narrative SUNQUEST - 12/03/1998 12:00 AM EDT [facility] MR #: [id number] [facility] [address], [place] [id number] 1975 (Age: 23) FW Collect Date: 11/18/1998 00:00 Receipt Date: 11/19/1998 00:00 Page 1 DEPARTMENT OF PATHOLOGY AND LABORATORY MEDICINE CYTOPATHOLOGY REPORT Email: [email or web address] * Converted Case * This report may not match the original report format ATTENDING MD/Practitioner: Phuc Amaya MD Service: OB Location: Reported: 12/03/1998 00:00 Collected: 11/18/1998 00:00 INTERPRETATION CERVICAL/VAGINAL SMEAR WITHIN NORMAL LIMITS. SATISFACTORY FOR INTERPRETATION. Cervical/vaginal cytology is a screening test with a recognized false negative rate. New technologies may decrease but will not eliminate false negative results. Regular (generally annual) cytology screening is recommended to minimize false negative results. Electronically Signed Out By Taj Vasquez Stanislav Schreiber, IVAN(ASCP) No Signature Required Cervical cytology is a screening test primarily for squamous cancers and precursors and has associated false negative and positive results. New technologies such as liquid based sampling may decrease but will not eliminate all false negative results. Regular screening and follow-up of unexplained clinical signs and symptoms are recommended to minimize false negative results. Please see the ASCCP website (www.asccp.org) for followup recommendations. If HPV testing was requested, correlation with the results is suggested (please call Microbiology at [phone] for results). CLINICAL INFORMATION: Menstrual History: {Not Provided} Date of Last Menstrual Period: {Not Provided} SPECIMEN DESCRIPTION: A: CERVICAL/VAGINAL SMEAR, PAP ICD: F: {Not Entered} SNOMED CODES: 1; [id number] In cases where a pathologist has signed out the report, the service has been rendered in part by a resident. The signing pathologist has performed and is responsible for the reported pathologic evaluation. us Historical Provider LAB PATHOLOGY ORDERABLES Fin al Result SUNQUEST from Last 3 Months or Most Recently Relevant to Health Maintenance
[2025-04-15 09:43] LABS: Hematocrit 42.7 % (37.0-47.0); Hemoglobin 14.4 g/dL (12.2-16.2); Immature Granulocytes % 0.2 %; Mean Corpuscular HGB Conc 33.7 g/dL (31.8-35.4); Mean Corpuscular Hemoglobin 30.8 pg (27.0-31.2); Mean Corpuscular Volume 91.4 fl (81-99); Nucleated Red Blood Cells % 0 %; Platelet Count 264 K/mm3 (142-424); Red Blood Count 4.67 M/mm3 (4.20-5.40); Red Cell Distribution Width-SD 43.8 fL; White Blood Count 5.4 K/mm3 (4.8-10.8)
[2025-04-15 10:57] LABS: Albumin Level 4.6 g/dl (3.5-5.0); Chloride 106 mmol/L (98-107); Potassium 4.1 mmoL/L (3.5-5.1); Sodium 141 mmol/L (136-145)
[2025-04-15 10:59] LABS: Blood Urea Nitrogen 8 mg/dl (7-17); Creatinine,Serum 0.60 mg/dl (0.52-1.04); Estimated Glomerular Filt Rate 105 ml/min (>60); GFR (African American) 128 ML/MIN (>60)
[2025-04-15 11:00] LABS: Alanine Aminotransferase 38 U/L (12-78); Alkaline Phosphatase 78 U/L (38-126); Anion Gap 12.1 mEq/L (5-15); Aspartate Amino Transferase 33 U/L (14-36); Bilirubin,Direct 0.1 mg/dl (0.0-0.4); Bilirubin,Indirect 0.5 mg/dL (0.0-0.9); Bilirubin,Total 0.6 mg/dl (0.2-1.3); Bilirubin,Unconjugated 0.6 mg/dL (0.0-1.1); Calcium 9.5 mg/dl (8.4-10.2); Carbon Dioxide 27 mmol/L (22.0-30.0); Cholesterol 114 mg/dl (140-200); Glucose 90 mg/dl (74-100); Magnesium 1.6 mg/dl (1.6-2.3); Total Protein,Serum 7.2 g/dl (6.3-8.2); Triglycerides 110 mg/dl (30-150)
[2025-04-15 11:01] LABS: HDL Cholesterol 54 mg/dl (40-60)
[2025-04-15 11:31] LABS: Thyroid Stimulating Hormone 0.45 uIU/mL (0.465-4.68)
[2025-04-15 14:05] LABS: Free T4 (Free Thyroxine) 1.17 ng/dl (0.78-2.19)
== END 2025-04-15 23:59 | disposition home or self-care (01) ==
LOC: LAB 09:26
PROVIDERS: PCP Internal Medicine; Visit Provider Physician Assistant
DX: I25.10 Atherosclerotic heart disease of native coronary artery without angina pectoris (principal); G47.33 Obstructive sleep apnea (adult) (pediatric); E78.5 Hyperlipidemia, unspecified; R93.1 Abnormal findings on diagnostic imaging of heart and coronary circulation; Z82.49 Family history of ischemic heart disease and other diseases of the circulatory system
CPT/HCPCS: 36415; 80048; 80061; 80076; 83695; 83735; 84439; 84443; 85025